=== PATIENT | female | born 1970 | race Two or more races ===

== ENCOUNTER 2025-03-17 15:07 | Emergency (ER) | payer OTHER ==
[~2025-03-17] VITALS: Ht 170.2 cm; Wt 90.7 kg
[2025-03-17] MEDS ORDERED: FEMARA2.5 MG PO (15:14)
[2025-03-17] MEDS ORDERED: JANUMET 50-1,01 EACH PO (15:15)
[2025-03-17] MEDS ORDERED: 0.9 % SODIUM CHLORIDE 500 ML IV ONE (15:45)
[2025-03-17] MEDS ORDERED: KETOROLAC TROMETHAMINE 30 MG VIAL IV ONE (15:45)
[2025-03-17] MEDS ORDERED: ONDANSETRON HCL 2 MG/ML VIAL IV ONE (15:45)
[2025-03-17] MEDS ORDERED: FAMOTIDINE/PF 20 MG/2 ML VIAL IV ONE (15:45)
[2025-03-17 16:07] LABS: BASO % 0.5 % (0.1-1.2); EOS # 0.07 (0.04-0.54); EOS % 0.6 % (0.7-7.0); LYMPH # 2.56 (1.18-3.74); LYMPH % 21.3 % (19.3-53.1); MEAN PLATELET VOLUME 9.50 fl (9.4-12.4); MONO # 1.32 (0.24-0.82); MONO % 11.0 % (4.7-12.5); NEUT # 7.88 (1.56-6.13); NEUT % 65.7 % (34.0-71.1); RED CELL DISTRIBUTION WIDTH 13.7 % (11.6-14.4)
[2025-03-17 16:26] LABS: ALT/SGPT 38.0 U/L (12-78); AST/SGOT 16.0 U/L (15-37); BILIRUBIN TOTAL 0.71 mg/dL (0.3-1.2); BUN CREA RATIO 13.0 (7.0-25.0); CREATININE SERUM 1.27 mg/dL (0.55-1.02); GFR 43.53; GLOBULINA 4.1 G/DL (2.4-3.5); OSMOLALITY SERUM 291.0 MOSM/KG (275-295)
[2025-03-17 16:27] LABS: GLUCOSE FASTING 260.0 mg/dL (65-100)
[2025-03-17 16:32] LABS: URINE APPEARANCE Clear; URINE BILIRRUBIN Negative (NEGATIVE); URINE BLOOD Moderate; URINE COLOR Dark Yellow; URINE KETONE Trace (NEGATIVE); URINE LEUKOCYTE Negative; URINE NITRATE Positive; URINE PROTEIN Trace (NEGATIVE); URINE UROBILINOGEN 1.0 E.U./dl
[2025-03-17 16:35] LABS: URINE GLUCOSE 250 MG/DL (NEGATIVE)
[2025-03-17 16:36] LABS: URINE BACTERIA 43.1 uL (0.0-1933); URINE EPITHELIAL CELLS 4.1 uL (0.0-38.8); URINE RBC 160.0 uL (0.0-20.8); URINE WBC 9.5 uL (0.0-23.2)
[2025-03-17 16:37] LABS: URINE CAST 0.14 uL (0.0-1.40)
[2025-03-17 16:46] LABS: BILIRUBIN TOTAL 0.73 mg/dL (0.3-1.2); BILIRUBIN,CONJUGATED 0.15 mg/dL (0.0-0.2)
[2025-03-17] MEDS ORDERED: TAMSULOSIN HCL 0.4 MG CAP PO ONE (18:00)
[2025-03-17] MEDS ORDERED: CEFTRIAXONE SODIUM 1,000 MG VIAL IV ONE (18:00)
[2025-03-17] MEDS ORDERED: TAMS0.4C PO (18:04)
[2025-03-17] MEDS ORDERED: DICLOFENAC SODI50 MG PO (18:04)
[2025-03-17] MEDS ORDERED: BACTRIM DS TAB1 EACH PO (18:04)
== END 2025-03-17 18:44 ==
LOC: ER 15:07
PROVIDERS: Emergency Medicine
DX: N20.1 Calculus of ureter (principal); N39.0 Urinary tract infection, site not specified; R30.0 Dysuria; Z85.3 Personal history of malignant neoplasm of breast; E11.65 Type 2 diabetes mellitus with hyperglycemia; Z79.84 Long term (current) use of oral hypoglycemic drugs
CPT/HCPCS: 36415; 74176; 96365; 96366; 99284; J0696; J1885; J2405; J3490; J7042

== ENCOUNTER 2025-08-19 09:02 | Emergency (ER) | payer OTHER ==
[~2025-08-19] VITALS: Ht 170.2 cm; Wt 94.3 kg
[~2025-08-19 09:02] MED LIST: BACTRIM DS TAB1 EACH PO; DICLOFENAC SODI50 MG PO; FEMARA2.5 MG PO; JANUMET 50-1,01 EACH PO; TAMS0.4C PO
[2025-08-19] MEDS ORDERED: 0.9 % SODIUM CHLORIDE 1,000 ML IV STA (09:49)
[2025-08-19] MEDS ORDERED: MORPHINE SULFATE 4 MG/ML CARTRIDGE IV STA ×2 (09:50→10:32)
[2025-08-19] MEDS ORDERED: ORPHENADRINE CITRATE 30 MG/ML AMPUL IM STA (09:50)
[2025-08-19] MEDS ORDERED: TRIAMCINOLONE ACETONIDE 40 MG/ML VIAL IM STA (09:50)
[2025-08-19 10:06] LABS: BASO % 0.3 % (0.1-1.2); EOS # 0.06 (0.04-0.54); EOS % 0.5 % (0.7-7.0); LYMPH # 1.21 (1.18-3.74); LYMPH % 10.0 % (19.3-53.1); MEAN PLATELET VOLUME 9.50 fl (9.4-12.4); MONO # 0.77 (0.24-0.82); MONO % 6.4 % (4.7-12.5); NEUT # 9.90 (1.56-6.13); NEUT % 82.3 % (34.0-71.1); RED CELL DISTRIBUTION WIDTH 14.3 % (11.6-14.4)
[2025-08-19] MEDS ORDERED: TRIAMCINOLONE ACETONIDE 40 MG/ML VIAL ONE (10:33)
[2025-08-19] MEDS ORDERED: ORPHENADRINE CITRATE 30 MG/ML AMPUL ONE (10:33)
[2025-08-19 11:27] LABS: ALT/SGPT 40.0 U/L (12-78); AST/SGOT 16.0 U/L (15-37); BILIRUBIN TOTAL 1.06 mg/dL (0.3-1.2); BUN CREA RATIO 22.0 (7.0-25.0); CREATININE SERUM 0.6 mg/dL (0.55-1.02); GFR 103.41; GLOBULINA 3.4 G/DL (2.4-3.5); GLUCOSE FASTING 214.0 mg/dL (65-100); OSMOLALITY SERUM 286.0 MOSM/KG (275-295)
[2025-08-19] MEDS ORDERED: TRAMADOL HCL 50 MG TABLET PO STA (15:35)
== END 2025-08-19 23:17 | disposition home or self-care (01) ==
LOC: ER 09:02
PROVIDERS: General Practice
DX: M54.50 Low back pain, unspecified (principal)
CPT/HCPCS: 36415; 72131; 96365; 96366; 96372; 99284; J2270; J2360; J3301; J7030